=== PATIENT | male | born 1935 | race Caucasian/White ===

== ENCOUNTER 2017-08-03 10:40 | Inpatient (IN) | payer MEDICARE ==
[~2017-08-03] VITALS: Ht 185.4 cm; Wt 98.6 kg
[~2017-08-03 10:40] MED LIST: CO Q1060 MG PO; FISH OIL 1,0001 EAC2 PO; MULTI-VITAMIN1 EACH PO; NORCO 7.5-3251 EACH PEG; Z.0.CRESTOR20 MG PO
[2017-08-03] MEDS ORDERED: BYSTOLIC10 MG PO (11:05)
[2017-08-03] MEDS ORDERED: CRESTOR10 MG PO (11:05)
[2017-08-03] MEDS ORDERED: CEFTRIAXONE SOD 1 GM VIAL IV ONE (11:15)
[2017-08-03] MEDS ORDERED: MAGNESIUM SULFATE 2GM/50ML 50 ML IV ONE (11:15)
[2017-08-03] MEDS ORDERED: AZITHROMYCIN 500MG/NS 250 ML 250 ML IV ONE (11:15)
[2017-08-03] MEDS ORDERED: ALBUTEROL/IPRATROPIUM 3 ML NEB NEB ONE ×2 (11:15→13:15)
[2017-08-03] MEDS ORDERED: DEXAMETHASONE SOD PHOS 10 MG/1 ML VIAL IV ONE (11:15)
[2017-08-03 11:25] LABS: BASOPHILS % 0.2 % (0.0-1.0); HEMATOCRIT 41.8 % (38.2-49.6); HEMOGLOBIN 13.6 g/dL (14.0-18.0); LYMPHOCYTES # (AUTO) 1.1 (1.0-3.2); LYMPHOCYTES % 10.7 % (18.0-39.1); MEAN CORPUSCULAR HEMOGLOBIN 27.3 pg (28-32); MEAN CORPUSCULAR HGB CONC 32.5 g/dL (31-35); MEAN CORPUSCULAR VOLUME 83.8 fL (81-99); MONOCYTES # (AUTO) 0.5 (0.2-0.8); MONOCYTES % 4.5 % (4.4-11.3); NEUTROPHILS # (AUTO) 8.8 (2.1-6.9); NEUTROPHILS % 84.2 % (38.7-80.0); PLATELET COUNT 173 x10e3/uL (140-360); RED BLOOD COUNT 4.99 x10e6/uL (4.3-5.7); RED CELL DISTRIBUTION WIDTH 15.1 % (11.7-14.4)
[2017-08-03 11:41] LABS: ANION GAP 11.2 mmol/L (8-16); BLOOD UREA NITROGEN 13 mg/dL (7-26); BUN/CREATININE RATIO 16 (6-25); CALCIUM 9.2 mg/dL (8.4-10.2); CARBON DIOXIDE 31 mmol/L (22-29); CHLORIDE 97 mmol/L (98-107); CREATININE, SERUM 0.82 mg/dL (0.72-1.25); EST GLOMERULAR FILTRATION RATE > 60 ML/MIN (60-); GLUCOSE 132 mg/dL (74-118); POTASSIUM 4.2 mmol/L (3.5-5.1); SODIUM 135 mmol/L (136-145)
--- NOTE | 2017-08-03 14:13 | Diagnostic Imaging Report ---
PROCEDURE: X-RAY CHEST, TWO VIEWS COMPARISON: 08/16/2016. INDICATIONS: SHORT OF BREATH, WHEEZING FINDINGS: The lungs are well-inflated. No focal airspace consolidation, pleural effusion, or pneumothorax. Mild reticular opacities in the lung bases likely reflect age-related fibrotic changes. Stable cardiomediastinal contour with tortuosity and atherosclerotic calcification of the thoracic aorta. No acute osseous abnormality. CONCLUSION: No acute cardiopulmonary abnormality. Dictated by: Gary Danielle M.D. on 08/03/2017 at 14:14 Electronically approved by: Gary Danielle M.D. on 08/03/2017 at 14:14
[2017-08-03] MEDS ORDERED: ASPIRIN 81 MG CHEW TAB PO ONE (15:15)
[2017-08-03] MEDS ORDERED: SODIUM CHLORIDE FLUSH 10 ML SYR INJ PRN (15:15)
[2017-08-03] MEDS: ALBUTEROL SULF 0.083% NEB SOLN 3 ML NEB NEB SCH ×3 (15:15→23:18)
[2017-08-03] MEDS ORDERED: AZITHROMYCIN 500MG/SOD CHL 0.9% 250ML BAG IV SCH (15:15)
--- OUTSIDE RECORDS SUMMARY | 2017-08-03 15:33 | XMS REPORT ---
Author Author [facility] Address Unknown Phone Unavailable Care Team Providers Care Financial Planning Analyst Name Role Phone LALITO MYLES Unavailable Unavailable Problems This patient has no known problems. Allergies, Adverse Reactions, Alerts This patient has no known allergies or adverse reactions. Medications This patient has no known medications. Results Test Description Test Time Test Comments Text Results Atomic Results Result Comments CHEST 2 VIEWS [place] [address] Patient Name: KEITH VENEGAS MR # : [id number] : 1935 Age/Sex: 81/M Req #: [id number] Adm Physician: Ordered by: LALITO MYLES MD Report #: [id number] Location: ER Room/Bed: Procedure: [id number] DX/CHEST 2 VIEWS Exam Date: 08/03/17 Exam Time: 1352 REPORT STATUS: Signed PROCEDURE: X-RAY CHEST, TWO VIEWS COMPARISON: 08/16/2016. INDICATIONS: SHORT OF BREATH, WHEEZING FINDINGS: The lungs are well-inflated. No focal airspace consolidation, pleural effusion, or pneumothorax. Mild reticular opacities in the lung bases likely reflect age-related fibrotic changes. Stable cardiomediastinal contour with tortuosity and atherosclerotic calcification of the thoracic aorta. No acute osseous abnormality. CONCLUSION: No acute cardiopulmonary abnormality. Dictated by: Criss Munoz M.D. on 08/03/2017 at 14:14 Electronically approved by: Criss uMnoz M.D. on 08/03/2017 at 14 :14 Dictated By: CRISS MUNOZ MD [id number] Transcribed By: TOM on 08/03/17 1414 COPY TO: LALITO MYLES MD
[2017-08-03 15:37] LABS: CREATINE KINASE MB 1.8 ng/mL (0-5.0)
[2017-08-03] MEDS ORDERED: FAMOTIDINE 20 MG/2 ML VIAL IV SCH (17:00)
[2017-08-03 17:30] VITALS: BP 160/107
[2017-08-03 18:00] VITALS: BP 160/107
[2017-08-03] MEDS: IPRATROPIUM BROMIDE 0.02% 2.5 ML NEB NEB SCH ×2 (18:55→23:18)
[2017-08-03] MEDS ORDERED: FUROSEMIDE INJ 10 MG/ML 4 ML VIAL IV ONE (19:15)
[2017-08-03 19:45] LABS: CREATINE KINASE 98 IU/L (30-200)
[2017-08-03 20:00] VITALS: BP 157/79
--- NOTE | 2017-08-03 21:47 | Diagnostic Imaging Report ---
EXAM: CT Chest WITHOUT contrast 08/03/2017 7:10 PM INDICATION: Shortness of breath COMPARISON: Chest x-ray on 08/03/2017 TECHNIQUE: Chest was scanned utilizing a multidetector helical scanner from the lung apex through the level of the adrenal glands without administration of IV contrast. Absence of intravenous contrast decreases sensitivity for detection of lymphadenopathy and vascular pathology. Coronal and sagittal reformations were obtained. Routine protocol was performed. IV CONTRAST: None RADIATION DOSE: Total DLP: 575.99 mGy*cm Estimated effective dose: (DLP x 0.014 x size factor) mSv COMPLICATIONS: None FINDINGS: LINES/ TUBES: None. LUNGS AND AIRWAYS: Multifocal airspace disease with areas of tree-in-bud nodularity involving the left upper, bilateral lower lobes and right perihilar region in the right upper lobe consistent with multifocal pneumonia. Airways are normal. PLEURA: The pleural spaces are clear. HEART AND MEDIASTINUM: The thyroid gland is abnormal, slightly enlarged containing a 1.8 cm hypodense lesion in the interpolar region of the left thyroid adjacent to the esophagus. No mediastinal, hilar or axillary lymphadenopathy. The heart is mildly enlarged.. There is no pericardial effusion. There are moderate atherosclerotic calcifications in the aorta and coronary arteries. UPPER ABDOMEN: Multiple hypodense lesions in the liver compatible with simple cysts. The liver is incompletely visualized BONES: The visualized bony thorax is within normal limits. SOFT TISSUES: Unremarkable. IMPRESSION: 1. Findings in the lungs are compatible with multifocal pneumonia. 2. Coronary artery disease. 3. Thyromegaly and thyroid nodule. Signed by: Dr. Talha Polk M.D. on 08/03/2017 9:43 PM
[2017-08-03] MEDS: METHYLPREDNISOLONE SOD SUCC 40 MG/ML VIAL IV SCH (21:48)
--- NOTE | 2017-08-03 21:49 | Consultation ---
DATE OF CONSULTATION: PULMONARY CONSULTATION REASON FOR THE CONSULT: Shortness of breath and hypoxia. HPI: Mr. Su is an 81-year-old male who presented with shortness of breath. Patient reports that he is having a feeling of not taking enough air for last 2 weeks since he has been started on Bystolic by Dr. Fair. Patient had episodes of flutter and that is why he was referred to cardiology, who evaluated the patient. Patient underwent stress test, chest x-ray, and carotid Doppler, and they were all normal. He also has been feeling fatigued and weak since he has been started on Bystolic. Patient smoked for 50 years, mostly pipe, quit 10 years ago. Shortness of breath has a feeling of panic, and he gasps for air when he lays flat. He denies any chest pain, nausea, vomiting, diarrhea. REVIEW OF SYSTEMS: GENERAL: Denies any fever or chills. HEAD: Denies any head trauma. ENT: Denies any earache. CVS: No chest pain. RESPIRATORY: Shortness of breath. GI: Denies any nausea, vomiting. The rest of the review of systems is negative except as in HPI. PAST MEDICAL HISTORY: Hypertension. PAST SURGICAL HISTORY: . FAMILY AND SOCIAL HISTORY: 50 years of smoking pipes. He used to work in banking. Lives with his . Does not drink. PHYSICAL EXAMINATION: VITAL SIGNS: Temperature 95.9, pulse of 66, blood pressure 133/70, respiratory rate is 18 to 20. HEENT: Head atraumatic, normocephalic. Pupils reactive. NECK: Supple. CHEST: Crackles bilaterally. Reduced air entry. HEART: S1 and S2 audible. ABDOMEN: Soft, nontender, nondistended. EXTREMITIES: No clubbing, cyanosis, or edema. NEUROLOGICAL: Awake and alert. LABS: White count of 10,000; hemoglobin 13; platelets 173,000. Chemistry: Sodium 135, potassium 4.2, chloride 97, BUN 13, creatinine 0.82. Troponin is negative. BNP 107.8. Chest x-ray reported as normal, however, I think patient has increased vascular congestion and large pulmonary artery and there is possibility of fluid in the fissure as well. ASSESSMENT: [id number] male with hypoxia and shortness of breath, currently requiring 2 liters of oxygen, 50-year history of smoking pipes, recent normal stress test, recently started on Bystolic. IMPRESSION: 1. Patient had chest x-ray increased congestion and possible fluid in the fissure. B-type natriuretic peptide is also high. There is a possibility of heart failure. Patient may have diastolic heart failure. 2. 50 years of smoking history, chronic obstructive pulmonary disease cannot be ruled out at this point. I will do a computerized tomography of the chest without contrast. 3. Reduce the dose of steroids. 4. Give 1 dose of Lasix. 5. Patient's bicarbonate is 31 signifying that patient probably has chronic hypercapnia and hypoxia. Job#: [id number]
[2017-08-03] MEDS ORDERED: METHYLPREDNISOLONE SOD SUCC 125 MG/2ML VIAL IV SCH ×2 (22:00)
[2017-08-04] VITALS (8 sets, daily range): BP systolic 135–159; BP diastolic 65–83
[2017-08-04] MEDS: ALBUTEROL SULF 0.083% NEB SOLN 3 ML NEB NEB SCH ×6 (00:25→20:40)
[2017-08-04] MEDS: METHYLPREDNISOLONE SOD SUCC 40 MG/ML VIAL IV SCH ×3 (05:04→21:48)
[2017-08-04 05:22] LABS: CREATINE KINASE 95 IU/L (30-200)
[2017-08-04] MEDS ORDERED: CEFTRIAXONE SOD 1 GM VIAL IV SCH (07:15)
[2017-08-04] MEDS: IPRATROPIUM BROMIDE 0.02% 2.5 ML NEB NEB SCH ×3 (07:40→20:40)
[2017-08-04] MEDS: FAMOTIDINE 20 MG TAB PO SCH ×2 (07:40→16:30)
[2017-08-04 08:16] LABS: CHOL/HDL RATIO 2.5 (3.9-4.7)
--- NOTE | 2017-08-04 08:17 | History and Physical ---
PRIMARY CARE PHYSICIAN: Dr. Chavez CHIEF COMPLAINT: Shortness of breath and hypoxemia. HISTORY OF PRESENT ILLNESS: This is an 81-year-old man with a history of pipe smoking having quit 10 years ago, who is a physically active man, now developing periods of facial flushing and difficulty breathing, which has been quite transient quickly resolving after a few seconds at home. This has been ongoing for about a month. The patient also admits to a cough that has been ongoing for a month. He went to see his doctor. EKG was performed. He was recommended for stress testing, which he states he underwent about a week ago. He states that the stress test was performed and was negative. Also, carotid studies were also obtained and were also negative. The patient went home and had been doing well. Started on some new medications and felt very weak, which he attributes to the medications. Continued to cough. Went to see his primary care doctor again, and found to have O2 saturation of 90% and sent to the hospital yesterday. Here he was found to have multifocal pneumonia on CT scan imaging. He was admitted to the hospital for further evaluation and management. PAST MEDICAL HISTORY: Hypertension, hyperlipidemia, pipe smoking quitting 10 years ago. PAST SURGICAL HISTORY: Hernia repair, right laminectomy. ALLERGIES: PER ELECTRONIC MEDICAL RECORD. FAMILY HISTORY: The patient's father in the war in [place]. SOCIAL HISTORY: The patient's mother of liver cirrhosis related to alcohol use. His aunt of lung cancer related to cigarette use. The patient is . He has 1 child. No alcohol. He quit pipe smoking about 10 years ago. No illicit drug use. MEDICATIONS: Per electronic medical records. REVIEW OF SYSTEMS: Denies any dizziness or chest pain. PHYSICAL EXAMINATION VITAL SIGNS: Have been reviewed. GENERAL: A tired-appearing man resting in bed. HEENT: Anicteric. Pupils respond to light. No oral lesions. CARDIOVASCULAR: Normal S1 and S2. LUNGS: Moderate breath sounds. No wheezing. Good aeration throughout. ABDOMEN: Soft, nontender and nondistended. EXTREMITIES: No edema or calf tenderness. NEUROLOGICAL: He is alert and oriented times 3. Moves all extremities. SKIN: Dry. PSYCHIATRIC: Normal affect. LABS: Reviewed. MEDICATIONS: Reviewed. ASSESSMENT AND PLAN: This is an 81-year-old man with: 1. Multifocal pneumonia: Continue azithromycin and ceftriaxone. Obtain sputum cultures. 2. Hypoxemia: Continue oxygen support. Continue steroid therapy. Continue antibiotics. Follow up pulmonary recommendations. 3. Left thyroid nodule: Obtain thyroid function testing and refer to Dr. Mendez, outpatient for fine needle aspiration. 4. Hypertension: Restart beta rhona. 5. Elevated brain natriuretic peptide at 107: He had a stress test about a week ago, which he states was negative. 6. Hyperlipidemia: Continue statin. Check lipid panel. 7. Overweight state: Body mass index is 28.6. Obtain lipid panel. His glucose level is 132. Screen for diabetes. 8. Prophylaxis: Will use heparin and Pepcid. 9. Disposition: Will continue antibiotics. Continue steroids. Obtain thyroid function testing and refer to endocrinology outpatient. Follow up pulmonary recommendations. Job#: [id number] RI
[2017-08-04 08:40] LABS: FREE THYROXINE INDEX 2.2537 (1.4-3.8); THYROID STIMULATING HORMONE 0.396 uIU/mL (0.350-4.940)
[2017-08-04] MEDS: HEPARIN SOD (PORCINE) 5,000 UNIT/ML VIAL SC SCH ×2 (09:00→21:00)
[2017-08-04] MEDS: NEBIVOLOL 10 MG TAB PO SCH (09:16)
[2017-08-04] MEDS: AZITHROMYCIN 500MG/NS 250 ML 250 ML IV SCH (11:00)
[2017-08-04] MEDS ORDERED: SODIUM CHLORIDE 0.9% 250ML 250 ML ONE (11:30)
[2017-08-04] MEDS ORDERED: SIMVASTATIN 40 MG TAB PO SCH (21:00)
[2017-08-04] MEDS: SIMVASTATIN 20 MG TAB PO SCH (21:48)
[2017-08-04] MEDS: PIPER-TAZ 3.375 GM 50 ML IV SCH (21:48)
[2017-08-05] VITALS (9 sets, daily range): BP systolic 123–161; BP diastolic 67–90
[2017-08-05] MEDS: ALBUTEROL SULF 0.083% NEB SOLN 3 ML NEB NEB SCH ×6 (03:20→22:40)
[2017-08-05] MEDS: IPRATROPIUM BROMIDE 0.02% 2.5 ML NEB NEB SCH ×4 (03:20→20:05)
[2017-08-05] MEDS: PIPER-TAZ 3.375 GM 50 ML IV SCH ×3 (06:08→21:15)
[2017-08-05] MEDS: METHYLPREDNISOLONE SOD SUCC 40 MG/ML VIAL IV SCH ×3 (06:08→21:15)
--- NOTE | 2017-08-05 06:45 | Progress Note ---
DATE: August 05, 2017 TIME: 05:04 a.m. OVERNIGHT: Has some PVCs, EKG was performed. REVIEW OF SYSTEMS: Denies any dizziness, chest pain. PHYSICAL EXAMINATION: VITAL SIGNS: Reviewed. GENERAL APPEARANCE: Tired-appearing man resting in bed. HEENT: Anicteric. Pupils respond to light. No oral lesions. CARDIOVASCULAR: Normal S1 and S2. LUNGS: He has good aeration. ABDOMEN: Soft, nontender, nondistended. EXTREMITIES: No edema or calf tenderness. NEUROLOGICAL: Alert and oriented x3. Moving all extremities. SKIN: Dry. PSYCHIATRIC: Normal affect. LABS: Reviewed. MEDICATIONS: Reviewed. ASSESSMENT: An 81-year-old man. 1. Multifocal pneumonia. 2. Hypoxemia. 3. Left thyroid nodule. 4. Hypertension. 5. Elevated B-type natriuretic peptide of 107. 6. Hyperlipidemia. 7. Overweight state, body mass index 28.6. hemoglobin A1c is 5.9, LDL 64. 8. Frequent premature ventricular contractions. 9. Prediabetes. PLAN: 1. Continue IV antibiotics, Zosyn and azithromycin. 2. Continue oxygen support. 3. Continue steroids. 4. Plan for fine-needle aspiration outpatient with Dr. Mendez. 5. Continue beta rhona. 6. Stress test recently was negative per patient about a week ago. 7. All cultures remain negative. 8. Continue antibiotics today. 9. Plan to recheck labs tomorrow. 10. Possible discharge home tomorrow. 11. Follow up with pulmonary recommendations. Job#: [id number]
[2017-08-05] MEDS: FAMOTIDINE 20 MG TAB PO SCH ×2 (07:30→16:42)
[2017-08-05] MEDS: HEPARIN SOD (PORCINE) 5,000 UNIT/ML VIAL SC SCH ×2 (09:00→21:00)
[2017-08-05] MEDS: NEBIVOLOL 10 MG TAB PO SCH ×2 (09:09→09:10)
[2017-08-05] MEDS: AZITHROMYCIN 500MG/NS 250 ML 250 ML IV SCH (11:40)
[2017-08-05] MEDS: SIMVASTATIN 20 MG TAB PO SCH (21:15)
[2017-08-06] MEDS: IPRATROPIUM BROMIDE 0.02% 2.5 ML NEB NEB SCH ×4 (00:19→19:25)
[2017-08-06] MEDS: ALBUTEROL SULF 0.083% NEB SOLN 3 ML NEB NEB SCH ×6 (00:19→22:30)
[2017-08-06] MEDS: METHYLPREDNISOLONE SOD SUCC 40 MG/ML VIAL IV SCH ×3 (06:42→20:41)
[2017-08-06] MEDS: PIPER-TAZ 3.375 GM 50 ML IV SCH ×3 (06:42→21:30)
[2017-08-06 07:15] VITALS: BP 185/88
[2017-08-06 07:34] VITALS: BP 185/88
[2017-08-06] MEDS: FAMOTIDINE 20 MG TAB PO SCH ×2 (07:45→16:37)
[2017-08-06 08:02] LABS: BASOPHILS # (AUTO) 0.1 (0.0-0.1); BASOPHILS % 0.5 % (0.0-1.0); HEMATOCRIT 41.1 % (38.2-49.6); HEMOGLOBIN 13.3 g/dL (14.0-18.0); LYMPHOCYTES # (AUTO) 1.3 (1.0-3.2); MEAN CORPUSCULAR HEMOGLOBIN 27.1 pg (28-32); MEAN CORPUSCULAR HGB CONC 32.4 g/dL (31-35); MEAN CORPUSCULAR VOLUME 83.7 fL (81-99); MONOCYTES # (AUTO) 0.7 (0.2-0.8); MONOCYTES % 6.1 % (4.4-11.3); NEUTROPHILS # (AUTO) 8.5 (2.1-6.9); PLATELET COUNT 273 x10e3/uL (140-360); RED BLOOD COUNT 4.91 x10e6/uL (4.3-5.7); RED CELL DISTRIBUTION WIDTH 15.5 % (11.7-14.4)
[2017-08-06 08:47] LABS: ANION GAP 14.9 mmol/L (8-16); BLOOD UREA NITROGEN 19 mg/dL (7-26); BUN/CREATININE RATIO 23 (6-25); CALCIUM 9.3 mg/dL (8.4-10.2); CARBON DIOXIDE 29 mmol/L (22-29); CHLORIDE 99 mmol/L (98-107); CREATININE, SERUM 0.83 mg/dL (0.72-1.25); EST GLOMERULAR FILTRATION RATE > 60 ML/MIN (60-); GLUCOSE 152 mg/dL (74-118); POTASSIUM 3.9 mmol/L (3.5-5.1); SODIUM 139 mmol/L (136-145)
[2017-08-06] MEDS: HEPARIN SOD (PORCINE) 5,000 UNIT/ML VIAL SC SCH ×2 (09:00→20:41)
[2017-08-06] MEDS: NEBIVOLOL 10 MG TAB PO SCH (09:20)
[2017-08-06] MEDS: AZITHROMYCIN 500MG/NS 250 ML 250 ML IV SCH (11:15)
[2017-08-06 11:25] LABS: BAND NEUTROPHILS % (MANUAL) 3 %; LYMPHOCYTES % (MANUAL) 10 % (19-48); MONOCYTES % (MANUAL) 4 % (3.4-9.0); NEUTROPHILS % (MANUAL) 83 % (40-74); PLATELET ESTIMATE ADEQUATE; PLATELET MORPHOLOGY COMMENT NORMAL; RBC MORPHOLOGY COMMENT NORMAL
[2017-08-06 11:26] VITALS: BP 186/116
[2017-08-06] MEDS ORDERED: HYDRALAZINE HCL 20 MG/ML VIAL IV ONE (11:30)
[2017-08-06] MEDS ORDERED: CLONIDINE HCL 0.1 MG TAB PO PRN (15:15)
--- NOTE | 2017-08-06 15:45 | Progress Note ---
DATE: August 06, 2017 TIME: 1445 MEDICINE PROGRESS NOTE OVERNIGHT: Patient with uneventful nighttime visit. However, the patient noted with hypertensive urgency over the course of this day. REVIEW OF SYSTEMS: The patient denies any nausea, vomiting, diarrhea, chest pain or dizziness. PHYSICAL EXAMINATION VITAL SIGNS: Temperature 95.4, P 71, R 20, BP 186/116, pulse ox 98% on nasal cannula O2 at 1.5 L. GENERAL APPEARANCE: This is a tired-appearing man resting on side of bed. HEENT: Anicteric. PERRLA. Oral mucosa moist and intact. CV: S1 and S2 auscultated without clicks, murmurs or rubs. LUNGS: Faint wheeze noted at the bases with good excursion. ABDOMEN: Soft, not tender, and distended. EXTREMITIES: No edema or calf tenderness. NEUROLOGICAL: Alert and oriented x3. Moves all extremities with motor function intact. SKIN: Dry. PSYCHIATRIC: Normal affect. LABS: WBC 10.7, H and H 13.3 and 41.4 respectively, platelets 273. Chemistries this a.m.: Sodium 139, potassium 3.9, chloride 99, carbon dioxide 29, gap 14.9, BUN 19, creatinine 0.8. Fingerstick glucose 152. MEDICATIONS 1. Albuterol neb treatments q.4 h. 2. Zosyn q.8 h. IV. 3. Solu-Medrol 20 q.8 h. IV. 4. Atrovent nebs q.6 h. 5. IV azithromycin q.24 h. 6. Bystolic 10 mg p.o. daily. 7. Pepcid 20 mg p.o. b.i.d. 8. Zocor 10 mg p.o. nightly. 9. One-time dose of hydralazine on this day for elevation of blood pressure. ASSESSMENT AND PLAN: This is a an 81-year-old man with: 1. Multifocal pneumonia: Continue IV antibiotics Zosyn and azithromycin. 2. Hypoxemia: Continue supplemental O2 support. O2 sat on 1.5 L as above. Consider oxygen tolerance test prior to discharge. 3. Left thyroid nodule: Can plan for FNA outpatient with Dr. Mendez. 4. Hypertension: Continue Bystolic. Hypertensive urgency noted this day. Will follow up with lab values in a.m. and continue to monitor until reaching goal of 25% reduction prior to discharge. 5. Elevated B-type natriuretic peptide of 107. 6. Hyperlipidemia: Statin as above. 7. Overweight state: BMI 28.6. Fingerstick glucose elevated this day. However, hemoglobin A1c is 5.9 and LDL 64. Will continue to monitor. 8. Frequent premature ventricular contractions: Telemetry monitoring. 9. Prediabetic, as above: Will continue monitoring. 10. Prophylaxis: Heparin offered and refused. On IV Pepcid. 11. Disposition: Follow up with pulmonary's recommendations. Outpatient per Dr. Mendez. Discharge delayed due to hypertensive urgency episode this day. We will follow up with a.m. labs. Dictated by Martín Parr NP. Job#: [id number]
[2017-08-06 15:55] VITALS: BP 164/79
[2017-08-06 19:20] VITALS: BP 181/81
[2017-08-06 20:30] VITALS: BP 157/74
[2017-08-06] MEDS: SIMVASTATIN 20 MG TAB PO SCH (20:41)
[2017-08-07] MEDS: ALBUTEROL SULF 0.083% NEB SOLN 3 ML NEB NEB SCH ×2 (02:30→07:00)
[2017-08-07] MEDS: IPRATROPIUM BROMIDE 0.02% 2.5 ML NEB NEB SCH ×2 (02:30→07:00)
[2017-08-07 03:30] VITALS: BP 135/61
[2017-08-07 05:03] VITALS: BP 135/61
[2017-08-07] MEDS: PIPER-TAZ 3.375 GM 50 ML IV SCH (06:10)
[2017-08-07] MEDS: METHYLPREDNISOLONE SOD SUCC 40 MG/ML VIAL IV SCH (06:10)
[2017-08-07 08:00] VITALS: BP 152/68
[2017-08-07] MEDS: FAMOTIDINE 20 MG TAB PO SCH (08:30)
[2017-08-07] MEDS: NEBIVOLOL 10 MG TAB PO SCH (08:30)
[2017-08-07] MEDS ORDERED: PREDNISONE20 MG PO (08:35)
[2017-08-07] MEDS ORDERED: FAMOTIDINE20 MG PO (08:35)
[2017-08-07] MEDS ORDERED: VENTOLIN HFA18 GM INH (08:35)
[2017-08-07] MEDS ORDERED: AZITHROMYC200 MG/5 M PO (08:38)
[2017-08-07] MEDS: HEPARIN SOD (PORCINE) 5,000 UNIT/ML VIAL SC SCH (08:38)
== END 2017-08-07 10:00 | disposition home or self-care (01) | DRG 193 ==
LOC: ER 10:40 → ERHOLD 15:30 → MED/SURG3 17:14
PROVIDERS: ADMIT Internal Medicine; ATTEND Internal Medicine
DX: J18.9 Pneumonia, unspecified organism (principal); J96.21 Acute and chronic respiratory failure with hypoxia; J96.22 Acute and chronic respiratory failure with hypercapnia; J44.0 Chronic obstructive pulmonary disease with (acute) lower respiratory infection; E04.1 Nontoxic single thyroid nodule; E66.3 Overweight; Z68.28 Body mass index [BMI] 28.0-28.9, adult; I49.3 Ventricular premature depolarization; R73.09 Other abnormal glucose; Z87.891 Personal history of nicotine dependence; R79.89 Other specified abnormal findings of blood chemistry; I16.0 Hypertensive urgency
CPT/HCPCS: 36415; 71046; 71250; 80048; 80061; 82550; 82553; 83036; 83880; 84436; 84443; 84479; 84484; 85025; 87040; 87070; 87205; 93005; 94640; 96367; 99284; J0360; J0456; J0696; J1100; J1644; J1940; J2543; J2920; J7050